=== PATIENT | female | born 1975 | race Caucasian/White ===

== ENCOUNTER 2016-12-10 05:27 | Inpatient (IN) | payer BC, OTHER ==
[2016-11-11 10:32] VITALS: BMI 29.0
--- NOTE | 2016-11-11 11:27 | PAT Medication Instructions ---
Service Date Nov 11, 2016. Current Home Medication List Meloxicam (Mobic), 25 MG PO QAM Tramadol (Ultram), 25 MG PO Q6H PRN for Pain Medication Instructions For Your Scheduled Surgery Meloxicam (Mobic), 25 MG PO QAM (patient will check with surgeon instructions) - Take the following medications the morning of surgery with a sip of water: Tramadol (Ultram), 25 MG PO Q6H PRN for Pain (can take up to hours prior to surgery if needed) - Take the following medications as scheduled the night before surgery: Tramadol (Ultram), 25 MG PO Q6H PRN for Pain If you have any questions please call us at [phone] or [phone] ( Michelle) or [phone]
[2016-11-11 12:01] LABS: BASO % 0.3 %; BASO ABS # 0.02 K/uL (0-0.2); COMPLETE YES; EOS % 0.5 %; HEMATOCRIT 42.1 % (37-47); IG% 0.1 %; LYMPH % 23.9 %; LYMPH ABS # 1.86 K/uL (1.2-3.4); MEAN CELL VOLUME 89.2 fL (80-100); MEAN CORPUSCULAR HEMOGLOBIN 31.6 pg (25-34); MEAN CORPUSCULAR HGB CONC 35.4 g/dl (32-36); MEAN PLATELET VOLUME 11.1 fL (7.4-10.4); MONO % 7.7 %; NEUT % 67.5 %; PLATELET COUNT 267 K/uL (130-400); RED BLOOD COUNT 4.72 M/uL (4.2-5.4); WHITE BLOOD COUNT 7.79 K/uL (4.8-10.8)
[2016-11-11 12:09] LABS: URINE APPEARANCE CLEAR (CLEAR); URINE BILIRUBIN NEG (NEG); URINE COLOR YELLOW; URINE EPITHELIAL CELL AUTO 20-30 /lpf (0-5); URINE NITRITE NEG (NEG); URINE PH 7.5 (4.5-7.5); URINE SPECIFIC GRAVITY 1.006 (1.000-1.030); UROBILINOGEN NEG (NEG)
[2016-11-11 12:23] LABS: MANUAL MICROSCOPIC REQUIRED? NO; REVIEW REQ? NO
--- NOTE | 2016-11-11 12:24 | DIAGNOSTIC IMAGING REPORT ---
CHEST PREADMISSION(PA/LAT) CLINICAL HISTORY: Preoperative evaluation. COMPARISON STUDY: No previous studies for comparison. FINDINGS: Lung volumes are normal. Lungs are clear. There is no pneumothorax or pleural effusion. Cardiac size is normal. Mediastinal contours are normal. IMPRESSION: No acute cardiopulmonary findings. Electronically signed by: José Miguel Rae M.D. 11/11/2016 12:22 PM
[2016-11-11 12:28] LABS: BUN/CREATININE RATIO 18.4 (10-20); CALCIUM 9.2 mg/dl (8.5-10.1); CREATININE 0.71 mg/dl (0.60-1.20); POTASSIUM 4.1 mmol/L (3.5-5.1)
[2016-12-10] VITALS (8 sets, daily range): BP systolic 98–138; BP diastolic 64–101; PULSE 83–102; TEMP 36.7–36.9; O2SAT 95–98; Ht 162.6 cm; Wt 77.8 kg
[~2016-12-10] VITALS: Ht 162.6 cm; Wt 77.8 kg
[~2016-12-10 05:27] MED LIST: MELO7.5T5 PO; TRAM-10 PO; [UNRECOGNIZED DRUG - REMARK] SCH
[2016-12-10] MEDS ORDERED: CEFAZOLIN 1000MG/55 ML D5W IV SCH (06:00)
[2016-12-10] MEDS ORDERED: LACTATED RINGER'S 1000ML 1,000 ML IV SCH (06:00)
[2016-12-10] MEDS ORDERED: SCOPOLAMINE 1.5 MG TDSY TD SCH (06:00)
[2016-12-10] MEDS ORDERED: FENTANYL CITRATE INJ 50 MCG/1 ML 2 ML VIAL ONE (06:35)
[2016-12-10] MEDS ORDERED: MIDAZOLAM HCL 1 MG/ML 2ML VIAL ONE (06:35)
[2016-12-10] MEDS ORDERED: CLINDAMYCIN 600 MG/54 ML D5W IV ONE (07:28)
--- NOTE | 2016-12-10 07:28 | History & Physical Bridge Note ---
H&P Re-Evaluation Bridge Note: I have examined the patient, reviewed the History & Physical and in the interval since the performance of the History & Physical I have noted the following changes of clinical significance: No changes noted
[2016-12-10] MEDS ORDERED: NURSING VERBAL MED ORDER ONE ×2 (07:30→11:45)
[2016-12-10] MEDS ORDERED: ATROPINE SULFATE 0.1 MG/ML 5ML SYR IV PRN (07:30)
[2016-12-10] MEDS ORDERED: PROMETHAZINE HCL INJ 12.5 MG in SODIUM CHLORIDE 0.9% 50ML 50 ML IV PRN ×2 (07:30→09:30)
[2016-12-10] MEDS ORDERED: LABETALOL HCL IV 5 MG/ML 20ML IV PRN (07:30)
[2016-12-10] MEDS ORDERED: ONDANSETRON INJ 2 MG/ML 2 ML VIAL IV PRN ×2 (07:30→09:30)
--- NOTE | 2016-12-10 07:30 | History and Physical ---
History & Physical Date Dec 10, 2016. Chief Complaint back and leg pain History of Present Illness The patient is a 41 year old female with complaints of Additional History Hepatic Disease: No Endocrine Disorder: No Kidney Disease: No Hypertension: No Heart Disease: No Bleeding Tendencies: No Infectious Diseases: No Allergies Coded Allergies: Codeine (Verified Allergy, Severe, HIVES-SOB, 12/10/16) Morphine (Verified Allergy, Severe, HIVES - SOB, 12/10/16) Penicillins (Verified Allergy, Severe, HIVES, 12/10/16) Sulfa Antibiotics (Verified Allergy, Severe, HIVES - ITCHY, 12/10/16) Home Medications Scheduled Meloxicam (Mobic), 25 MG PO QAM Scheduled PRN Tramadol (Ultram), 25 MG PO Q6H PRN for Pain Physical Examination Skin: warm/dry, no rash Eyes: normal inspection, EOMI, sclerae normal ENT: normal ENT inspection, pharynx normal Head: normocephalic, atraumatic Neck: supple, no adenopathy, trachea midline Respiratory/Chest: lungs clear, normal breath sounds, no respiratory distress Cardiovascular: regular rate, rhythm, no edema, no murmur Abdomen / GI: normal bowel sounds, non tender Back: normal inspection Extremities: normal inspection, normal range of motion Neurologic/Psych: no motor/sensory deficits, alert, normal reflexes, oriented x 3 Diagnosis spinal stenosis Plan of Treatment decompression fusion L4-S1
[2016-12-10] MEDS ORDERED: HYDROmorphone INJ 2 MG/ML SYR/VIAL ONE (07:53)
[2016-12-10] MEDS ORDERED: METOCLOPRAMIDE HCL INJ 5 MG/ML 2 ML VIAL ONE (08:16)
[2016-12-10] MEDS ORDERED: PROPOFOL IV EMULSION 10 MG/ML 20 ML VIAL IV ONE (08:16)
[2016-12-10] MEDS ORDERED: GLYCOPYRROLATE INJ 0.2 MG/ML VIAL ONE (08:16)
[2016-12-10] MEDS ORDERED: PHENYLEPHRINE 100MCG/ML 5ML SYR ONE (08:16)
[2016-12-10] MEDS ORDERED: NEOSTIGMINE METHYLSULFATE 1 MG/ML 10ML VIAL ONE (08:16)
[2016-12-10] MEDS ORDERED: ROCURONIUM BROMIDE 10 MG/ML 5 ML VIAL ONE ×2 (08:16→08:30)
[2016-12-10] MEDS ORDERED: LIDOCAINE HCL 2% 2 ML VIAL (20MG/ML) ONE (08:16)
[2016-12-10] MEDS ORDERED: DEXAMETHASONE SOD INJ 4 MG/ML VIAL ONE (08:16)
[2016-12-10] MEDS ORDERED: DiphenhydrAMINE HCL 50 MG/ML VIAL ONE (08:16)
[2016-12-10] MEDS ORDERED: ONDANSETRON INJ 2 MG/ML 2 ML VIAL ONE (08:16)
[2016-12-10] MEDS ORDERED: LARYING-O-JET KIT (LTA) EXT ONE ×2 (08:20)
[2016-12-10] MEDS ORDERED: BUPIVACAINE/EPINEPHRINE 0.5% MPF 1:200,000 30 ML VIAL INJ ONE (08:21)
[2016-12-10] MEDS ORDERED: BACITRACIN 50000 UNIT VIAL IR ONE (09:25)
[2016-12-10] MEDS ORDERED: FLOSEAL HEMOSTATIC MATRIX 10ML TOP ONE (09:25)
[2016-12-10] MEDS ORDERED: FAMOTIDINE 20 MG TAB PO PRN (09:30)
[2016-12-10] MEDS ORDERED: LORAZEPAM 0.5 MG TAB PO PRN (09:30)
[2016-12-10] MEDS ORDERED: TRAMADOL HCL 50 MG TAB PO PRN (09:30)
[2016-12-10] MEDS ORDERED: ACETAMINOPHEN 500 MG TAB PO PRN (09:30)
[2016-12-10] MEDS ORDERED: ALUMINUM/MAGNESIUM SUSP 30 ML UDC PO PRN (09:30)
[2016-12-10] MEDS ORDERED: ACETAMINOPHEN IV 100 ML IV PRN (09:30)
[2016-12-10] MEDS ORDERED: DO NOT ADMINISTER PNEUMOCOCCAL VACCINE PRN ×2 (09:30)
[2016-12-10] MEDS ORDERED: hydrOXYzine HCL 25 MG TAB PO PRN (09:30)
[2016-12-10] MEDS ORDERED: DO NOT ADMINISTER FLU VACCINE PRN ×3 (09:30)
[2016-12-10] MEDS ORDERED: LORAZEPAM INJ 0.5 MG in SYRINGE 0 ML IV PRN (09:30)
[2016-12-10] MEDS ORDERED: SOD PHOSPHATE/SOD BIPHOSPHATE ENEMA 132 ML BTL PR PRN (09:30)
[2016-12-10] MEDS ORDERED: NALOXONE HCL 0.4 MG/1 ML VIAL/CARP IV PRN ×2 (09:30)
[2016-12-10] MEDS ORDERED: SODIUM CHLORIDE 0.9% 1000ML 1,000 ML IV SCH (09:30)
[2016-12-10] MEDS ORDERED: MAGNESIUM HYDROXIDE SUSP 30 ML UDC PO PRN (09:30)
[2016-12-10] MEDS ORDERED: METOCLOPRAMIDE HCL INJ 5 MG/ML 2 ML VIAL IV PRN (09:30)
[2016-12-10] MEDS ORDERED: BISACODYL 10 MG SUPP PR PRN (09:30)
--- NOTE | 2016-12-10 09:30 | [facility] Post Operative Brief Note ---
Immediate Operative Summary Operative Date Dec 10, 2016. Pre-Operative Diagnosis L4-S1 Spinal stenosis Post-Operative Diagnosis same as preop Procedure(s) Performed L4-S1 Decompression and posterior instrumented fusion; L4-5, L5-S1 interbody fusion; use of Fibrinet Vertical Spine Surgeon Dr. Lemon Seasoner Hand Surgeon(s) Cristino Dupont PA-C Estimated Blood Loss 250ml Findings stenosis Specimens none
[2016-12-10] MEDS ORDERED: HYDROmorphone HCL 0.5MG/ML 50 ML CASSETTE ONE (09:56)
[2016-12-10] MEDS: HYDROmorphone INJ 2 MG/ML SYR/VIAL IV PRN ×4 (10:00→10:20)
[2016-12-10] MEDS: HYDROmorphone HCL 0.5MG/ML 50 ML CASSETTE IV PRN ×4 (10:00→22:52)
--- NOTE | 2016-12-10 10:05 | OPERATIVE REPORT ---
DATE OF OPERATION: 12/10/2016 PREOPERATIVE DIAGNOSIS: Spinal stenosis. POSTOPERATIVE DIAGNOSIS: Same. PROCEDURE PERFORMED: 1. Lumbar decompression, medial facetectomy, foraminotomy L3-L4, L4-L5, L5-S1. 2. Posterior spinal fusion L4-L5, L5-S1. 3. Placement of posterior segmental instrumentation using Orthros rods and screws at L4-L5, L5-S1. 4. Interbody fusion L4-L5 and L5-S1. 5. Placement of PEEK cage 11 x 22 at L4-L5 and 7 x 22 at L5-S1. 6. Placement of locally harvested morcellized autograft in posterior gutters. 7. Use of Vertical Spine and OsteoStrux in the interbody space and posterior gutters. SURGEON: Dr. Zain Lemon. CLAIM CLERK: Sohail Dupont PA-C, who was present for patient positioning, sterile prep and drape, management of retractors and instruments. He was present through the critical portions of the case including wound closure, application of sterile dressing and transport of the patient to recovery. DESCRIPTION OF PROCEDURE: The patient was met with preoperatively, case discussed and all questions were addressed. At this point, the patient was taken back to operative suite, and after undergoing successful general intubation by the department of anesthesia, was placed in prone position on Balta table atop a Codey frame. All bony prominences were well padded and the eyes were inspected to ensure there was no external pressure placed upon them. At this point, lumbar spine was prepped and draped in normal sterile fashion. Sharp dissection with the assistance of Bovie cautery performed down to and exposing the lamina and transverse processes of L4, L5 and sacral ala bilaterally. From a caudal to cephalad fashion, complete laminectomy of L5, L4, partial laminectomy of L3 was performed addressing severe lateral recess and foraminal stenosis. Pedicle screws were then placed in L4, L5 and S1 levels bilaterally with assistance of fluoroscopy and appropriate size shaggy provisionally placed. Through transforaminal approach on the left, a complete discectomy of L5-S1 was performed, endplates curetted to subcortical bleeding bone, and a 7 x 22 mm PEEK cage filled with Fibrinet and OsteoStrux tapped in position. I then proceeded to L4-L5, and again through a transforaminal approach on the left, a complete discectomy was performed, endplates curetted to subcortical bleeding bone, and an 11 x 22 mm PEEK cage filled with Fibrinet and OsteoStrux tapped in position. The rods were then compressed, locked into final position bilaterally, and transverse processes of L4, L5 and sacral ala burred to subcortical bone. The remaining Fibrinet, OsteoStrux, locally harvested morcellized autograft placed in posterior gutters. A 7 flat DAVID drain was inserted. Incision was closed with 1-0 Vicryl in the fascia, 2-0 Vicryl subcutaneously, 4-0 Monocryl for final skin closure. Steri-Strips and sterile dressing placed. The patient was awakened and taken to PACU in stable condition. I attest to the content of the Intraoperative Record and any orders documented therein. Any exceptio ns are noted below.
--- NOTE | 2016-12-10 10:27 | DIAGNOSTIC IMAGING REPORT ---
INTRAOPERATIVE LUMBAR SPINE 2 VIEWS CLINICAL HISTORY: L4-S1 laminectomy/Decompression/Fusion COMPARISON STUDY: No previous studies for comparison. FINDINGS: 17 seconds of fluoroscopic time was utilized. 2 intraoperative fluoroscopic spot images are provided for interpretation. There are postsurgical changes of discectomies and interbody fusions at the L4-5 and L5-S1 levels. There are L4, L5, and S1 pedicle screws with adjoining spinal rods. IMPRESSION: Postsurgical changes of L4-5 and L5-S1 discectomies, interbody fusions, and posterior pedicle fixation Electronically signed by: Dev Kramer M.D. 12/10/2016 10:25 AM Dictated Date/Time: 12/10/2016 10:24 AM
--- NOTE | 2016-12-10 10:58 | Anesthesiology Progress Note ---
Anesthesia Post Op Note Date & Time Dec 10, 2016 at 10:57 Vital Signs Pain Intensity: 3 Vital Signs Past 12 Hours Date Time Temp Pulse Resp B/P Pulse Ox O2 Delivery O2 Flow Rate FiO2 12/10/16 10:35 80 16 100 12/10/16 10:35 36.8 80 16 12/10/16 10:33 135/76 12/10/16 10:30 75 13 12/10/16 10:30 74 13 99 12/10/16 10:28 136/81 12/10/16 10:25 72 23 100 12/10/16 10:25 72 23 12/10/16 10:23 133/81 12/10/16 10:20 76 11 100 12/10/16 10:20 76 11 12/10/16 10:18 122/78 12/10/16 10:15 83 15 99 12/10/16 10:15 82 15 12/10/16 10:13 114/65 12/10/16 10:10 81 13 100 12/10/16 10:10 79 13 12/10/16 10:08 112/58 12/10/16 10:05 75 21 100 12/10/16 10:05 75 21 12/10/16 10:03 94/52 12/10/16 10:00 85 19 12/10/16 10:00 86 19 99 12/10/16 09:58 89/45 12/10/16 09:55 78 19 98 12/10/16 09:55 77 19 12/10/16 09:54 102/75 12/10/16 09:51 115/60 12/10/16 09:50 87 99 12/10/16 09:50 87 12/10/16 09:50 36.6 85 16 115/60 99 Mask 10 12/10/16 06:01 36.7 96 18 138/101 97 Room Air Notes Mental Status: alert / awake / arousable, participated in evaluation Pt Amnestic to Procedure: Yes Nausea / Vomiting: adequately controlled Pain: adequately controlled Airway Patency, RR, SpO2: stable & adequate BP & HR: stable & adequate Hydration State: stable & adequate Anesthetic Complications: no major complications apparent
[2016-12-10] MEDS ORDERED: COUGH DROP (SUGAR FREE) LOZ 24 LOZ/1 BOX ONE (11:44)
[2016-12-10] MEDS ORDERED: COUGH DROP (SUGAR FREE) LOZ 24 LOZ/1 BOX PO PRN (12:45)
[2016-12-10] MEDS: LACTATED RINGER'S 1000ML 1,000 ML IV SCH ×2 (13:33→22:31)
[2016-12-10] MEDS: CLINDAMYCIN IV 600 MG in DEXTROSE 5% ADD-VANTAGE 50ML 50 ML IV SCH (15:48)
[2016-12-10] MEDS: DEXAMETHASONE INJ 6 MG in SYRINGE 0 ML IV SCH (15:52)
[2016-12-10] MEDS: DOCUSATE SODIUM/SENNA 50/8.6MG TAB PO SCH (20:46)
[2016-12-11] MEDS: CLINDAMYCIN IV 600 MG in DEXTROSE 5% ADD-VANTAGE 50ML 50 ML IV SCH (00:14)
[2016-12-11] MEDS: DEXAMETHASONE INJ 6 MG in SYRINGE 0 ML IV SCH ×2 (00:14→08:52)
[2016-12-11 04:01] VITALS: BP 113/70; PULSE 75; TEMP 36.9; O2SAT 95
[2016-12-11] MEDS ORDERED: HYDROmorphone INJ 0.5 MG/0.5 ML SYR IV PRN (06:00)
[2016-12-11] MEDS ORDERED: HYDROmorphone INJ 1 MG/ML SYR IV PRN (06:00)
[2016-12-11] MEDS ORDERED: DC PCA SCH (06:00)
[2016-12-11 06:05] LABS: COMPLETE YES; HEMATOCRIT 34.3 % (37-47); IG% 0.2 %; LYMPH % 4.8 %; LYMPH ABS # 0.78 K/uL (1.2-3.4); MEAN CELL VOLUME 89.8 fL (80-100); MEAN CORPUSCULAR HEMOGLOBIN 30.6 pg (25-34); MEAN CORPUSCULAR HGB CONC 34.1 g/dl (32-36); MEAN PLATELET VOLUME 11.1 fL (7.4-10.4); MONO % 4.7 %; NEUT % 90.3 %; PLATELET COUNT 240 K/uL (130-400); RED BLOOD COUNT 3.82 M/uL (4.2-5.4); WHITE BLOOD COUNT 16.19 K/uL (4.8-10.8)
[2016-12-11] MEDS ORDERED: NURSING VERBAL MED ORDER ONE ×2 (06:30→18:45)
[2016-12-11 06:33] LABS: BUN/CREATININE RATIO 15.8 (10-20); CALCIUM 8.3 mg/dl (8.5-10.1); CREATININE 0.76 mg/dl (0.60-1.20); POTASSIUM 3.9 mmol/L (3.5-5.1)
[2016-12-11 07:39] VITALS: BP 118/63; PULSE 83; TEMP 36.8; O2SAT 94
[2016-12-11] MEDS: OXYCODONE HCL IR 5 MG TAB (IMMEDIATE RELEASE) PO PRN ×2 (08:52→13:40)
[2016-12-11] MEDS ORDERED: RXC5 PO (09:55)
[2016-12-11] MEDS ORDERED: TRAM-10 PO (09:55)
--- NOTE | 2016-12-11 09:56 | Discharge Instructions ---
Discharge Instructions Admission Reason for Admission: Lumbar Spinal Stenosis Discharge Discharge Diagnosis / Problem: stenosis Discharge Goals Goal(s): Improve function Activity Recommendations Activity Limitations: per Instructions/Follow-up section . Instructions / Follow-Up Instructions / Follow-Up ACTIVITY RECOMMENDATIONS: SELF CARE INSTRUCTIONS AFTER THORACIC/LUMBAR FUSIONS 1. You may walk to your tolerance. It is good exercise for your legs and back. Expect some back and intermittent leg aches and pains. 2. You may perform "counter-top" level activities (make a sandwich, john with a project, etc.). 3. No bending or lifting of more than 10 pounds or back twisting of any nature (roll like a log when turning in bed). 4. You may ride in a car for 20-30 minutes at a time. No driving until after your first visit with your doctor. 5. Frequent changes of position and restricting sitting to 30 minutes at a time will help limit the amount of back spasms and stiffness you may experience. 6. You may discontinue the use of ambulatory aids (cane, crutches, etc.) once your strength and confidence allow. 7. You may elementary instructional coach the shower and let water strike your incision when you arrive home at least once daily. Do not take a tub bath, sit in a hot tub or go into a swimming pool until after your first recheck in the office. SPECIAL CARE INSTRUCTIONS: VERY IMPORTANT TO READ AND REVIEW A. Your surgical incision has been closed with a cosmetic suture under the skin that will dissolve in about 6 weeks. In 14 days, you can use a pair of clean scissors and cut the suture that is left outside of the skin at the ends of your incision. 1. The small skin tapes can be removed 7 days after surgery if they have not fallen off by that point. 2. You may keep the wound open to air as much as possible to promote healing after post-op day number 5 unless told otherwise by your doctor. 3. If you think the wound looks like it is becoming infected (redness or worsening drainage) and/or you are experiencing fever, chill or worsening back pain and muscle spasms, contact the office so that we may evaluate you as soon as possible. B. Complications are uncommon, but please contact us if you have any signs or symptoms of: 1. wound infection (fever higher than 102.5 degrees F, redness, separation of wound, drainage, or increasing pain from the incision) 2. blood clots in legs (pain, swelling, redness and warmth in legs) 3. urinary tract infection (fever higher than 102.5 degrees F, burning upon urination or increased frequency of urination) 4. nerve problems (inability to walk on your toes or heels, numbness, loss of bowel or bladder control) 5. any other symptoms that concern you C. Please call the office at if you have any concerns or questions about your operation or recovery. D. No smoking! Smoking drastically decreases the chance of a solid fusion. E. Do not take any anti-inflammatory medications (Indocin, Advil, Motrin, Aspirin, Naprosyn, etc.) as these may inhibit the chance of a solid fusion. Tylenol is okay to take for pain. MANAGING PAIN AFTER SPINAL SURGERY 1. Narcotic medication is intended for short-term use and will be provided for surgical pain. Surgical pain usually lasts for a period of 4-6 weeks. Narcotic medication includes Percocet, Vicodin, Darvocet, Tylenol #3 or Lortab. 2. Longer-term pain is more appropriately treated with non-narcotic medication such as Tylenol ES. 3. Muscle spasm is not appropriately treated with narcotics. Muscle relaxers such as Soma, Flexeril or Skelaxin can be used along with Tylenol ES. 4. Remember that we all live with some "aches and pains". This is not unusual or uncommon after an injury or as we get older. a. Back pain is expected and may include muscle spasms for 4 to 6 weeks after surgery. The pain should gradually improve. If the pain worsens for no apparent reason, please contact the office. b. Intermittent leg pain may also be experienced and should not be concerned about unless it worsens for no apparent reason. If so, please contact the office. 5. We will provide appropriate medication within the normal guidelines of their prescribed use. We will also be very cautious and aware of potential abuse and extended duration of patients' medication needs. a. Pain medications are for your comfort and to assist with sleep and rest so that the tissue can heal. They are not provided in order to return to normal activity and should not be used through the day. To do so or worsening pain at night can result from ongoing tissue damage and development of tolerance to the prescribed medicine. 6. Please allow 2-3 days to process refills. Prescriptions will not be mailed but must be picked up at the office. FOLLOW UP VISIT: Keep your scheduled follow-up appointment. Any questions, please call the office at . Current Hospital Diet Patient's current hospital diet: Regular Diet Discharge Diet Recommended Diet: Regular Diet Procedures Procedures Performed: L4-S1 Decompression and posterior instrumented fusion; L4-5, L5-S1 interbody fusion; use of Fibrinet Vertical Spine Pending Studies Studies pending at discharge: no Medical Emergencies . Who to Call and When: Medical Emergencies: If at any time you feel your situation is an emergency, please call 911 immediately. . Non-Emergent Contact Non-Emergency issues call your: Primary Care Provider . "Provider Documentation" section prepared by Zain Lemon. VTE Core Measure Inpt VTE Proph given/why not?: Patrick Cristina, SCD's
--- NOTE | 2016-12-11 10:13 | PROGRESS NOTE ---
DATE: 12/11/2016 SUBJECTIVE: Postop day #1. Back pain controlled. Leg pain improved. Vital signs stable. T-max 36.9. DAVID drained 50 mL. Hematocrit this a.m. 34.3. PHYSICAL EXAMINATION: The patient has good strength to testing, is standing and ambulating in the halls. ASSESSMENT: Status post lumbar decompression and fusion. PLAN: At this time, will continue physical therapy, advance her bowel regimen and discharge home tomorrow.
[2016-12-11 11:21] VITALS: BP 113/72; PULSE 84; TEMP 37.1; O2SAT 95
[2016-12-11 15:10] VITALS: BP 105/59; PULSE 79; TEMP 36.9; O2SAT 96
[2016-12-11 16:30] VITALS: O2SAT 96
[2016-12-11] MEDS ORDERED: KETOROLAC TROMETHAMINE 30 MG/ML VIAL IV. PRN (19:00)
[2016-12-11] MEDS: TAPENTADOL HCL 50 MG TAB PO PRN ×2 (19:12→23:26)
[2016-12-11] MEDS: DOCUSATE SODIUM/SENNA 50/8.6MG TAB PO SCH (21:05)
[2016-12-11 23:20] VITALS: BP 98/61; PULSE 79; TEMP 36.8; O2SAT 96
[2016-12-12] MEDS: POLYETHYLENE (MIRALAX) 17 GM PACK PO SCH ×2 (05:47→12:00)
[2016-12-12 06:10] VITALS: BP 108/66; PULSE 76; TEMP 36.8; O2SAT 98
[2016-12-12] MEDS: TAPENTADOL HCL 50 MG TAB PO PRN ×2 (06:17→10:30)
[2016-12-12] MEDS ORDERED: TAPE50TA5 PO (07:59)
--- NOTE | 2016-12-12 08:00 | Orthopedic Progress Note ---
Orthopedic Progress Note Date of Service Dec 12, 2016. Subjective Additional Notes: Doing well w/ no issues, pain is controlled with nucynta, medically stable. Objective calves soft nontender, N/V intact, capillary refill less than 2 sec., dressing C /D/I, A&O x3, toes mobile, hemovac drainage Date Time Temp Pulse Resp B/P Pulse Ox O2 Delivery O2 Flow Rate FiO2 12/12/16 06:10 36.8 76 16 108/66 98 Room Air 12/11/16 23:30 Room Air 12/11/16 23:20 36.8 79 18 98/61 96 Room Air 12/11/16 16:30 96 Room Air 12/11/16 15:10 36.9 79 20 105/59 96 Room Air 12/11/16 11:21 37.1 84 17 113/72 95 Room Air Assessment & Plan Assessment: s/p lumbar fusion Plan: Doing well, discharge home
[2016-12-12 10:51] VITALS: BP 108/66; PULSE 76; TEMP 36.8; O2SAT 98
--- NOTE | 2016-12-17 14:51 | DISCHARGE SUMMARY ---
ADMITTING DIAGNOSIS: Spinal stenosis. DISCHARGE DIAGNOSIS: Same. OPERATION: L4-S1 decompression and fusion performed on 12/10/2016. ATTENDING PHYSICIAN: Dr. Zain Lemon. HOSPITAL COURSE AND TREATMENT: Ms. Mackenzie is a pleasant individual with history and physical examination, radiographic images consistent with the above-mentioned diagnosis. For this reason, she was brought to the operating room on 12/10/2016, underwent the above-mentioned procedure. This was performed by Dr. Lemon under general anesthesia. The patient left the operating room with DAVID drain and Tse in place, transferred to PACU in stable condition. She was placed on GI and DVT prophylaxis, given a PNEUMATIC TOOL REPAIRER for pain control and transferred to the orthopedic floor. She was seen by physical therapy postoperative day #1 for ambulation and gait training. Throughout her hospital course, her calves remained supple and nontender. Abdomen remained soft and nontender. On 12/12/2016 the patient was deemed safe for home discharge. DISCHARGE INSTRUCTIONS: Avoid any bending or lifting. She should change dressing once daily. She may shower once there is no drainage. She should resume her prehospital medications. She should use oxycodone for pain control. We will see him in the office in 2 weeks for followup care.
== END 2016-12-12 12:30 | disposition home or self-care (01) | DRG 460 ==
LOC: ENRESERVTM → ENRESERVDT → C.ACU 05:27 → C.3E 07:00
PROVIDERS: ADMIT Orthopaedic Surgery Orthopaedic Surgery of the Spine; ATTEND Orthopaedic Surgery Orthopaedic Surgery of the Spine
PROC: 0SG30A1 (ICD-10-PCS; 2016-12-10)
PROC: 0SG00A1 (ICD-10-PCS; principal; 2016-12-10 07:30)
DX: M48.07 Spinal stenosis, lumbosacral region (principal)